=== PATIENT | male | born 1995 | race Caucasian/White ===

== ENCOUNTER 2021-03-05 22:33 | Emergency (ER) | payer OTHER ==
[~2021-03-05] VITALS: Ht 188 cm; Wt 117.9 kg
[2021-03-06 01:37] LABS: URINE BILIRUBIN NEGATIVE (Negative); URINE BLOOD NEGATIVE (Negative); URINE CLARITY CLEAR; URINE COLOR YELLOW; URINE GLUCOSE-RANDOM NEGATIVE (Negative); URINE KETONES NEGATIVE (Negative); URINE LEUKOCYTES-REFLEX NEGATIVE (Negative); URINE NITRITE-REFLEX NEGATIVE (Negative); URINE PROTEIN NEGATIVE (Negative); URINE SPECIFIC GRAVITY >= 1.030 (1.005-1.030); URINE UROBILINOGEN 0.2 E.U./dl (0.2-1.0)
[2021-03-06 01:42] LABS: AMP/METHAMP Negative (Negative); BARBITURATES Negative (Negative); BENZODIAZEPINES Negative (Negative); COCAINE Negative (Negative); METHADONE Negative (Negative); OPIATES Negative (Negative); PCP Negative (Negative); THC Negative (Negative)
[2021-03-06 01:44] LABS: HEMATOCRIT 45.1 % (42.0-52.0); HEMOGLOBIN 15.4 gm/dL (14.0-18.0); MCH 28.7 pg (26.0-34.0); MCHC 34.1 g/dL (28.0-37.0); MCV 83.9 fL (80.0-100.0); MPV 8.5 fl. (7.2-11.1); RBC 5.37 mil/uL (4.50-6.00); RDW-CV 13.7 % (10.5-14.5); WBC 9.1 thou/uL (4.0-11.0)
[2021-03-06 01:55] LABS: CALCIUM 9.4 mg/dL (8.5-10.1); CREATININE 0.8 mg/dL (0.6-1.3); POTASSIUM 3.7 mmol/L (3.5-5.1)
[2021-03-06 01:59] LABS: ALBUMIN 3.8 g/dL (3.4-5.0); TOTAL BILIRUBIN 0.3 mg/dL (<0.1-1.0); TOTAL PROTEIN 7.4 g/dL (6.4-8.2)
[2021-03-06] MEDS ORDERED: AMOXICILLIN500 M1 PO (02:28)
[2021-03-06 02:40] VITALS: BP 128/72
--- NOTE | 2021-03-06 16:26 | EKG ---
[place] [address] ELECTROCARDIOGRAM REPORT Name: ADAL CEDEÑO Room: 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: : 1995 Requested By: Lissa Herndon Order Number: [id number] MD: Richard Medrano Measurements Intervals [place] Rate: 78 P: 72 ME: 184 QRS: 103 QRSD: 98 T: -6 QT: 348 QTc: 397 Interpretive Statements Sinus rhythm Inferior infarct, age indeterminate Lateral leads are also involved No previous ECG available for comparison Electronically Signed On 03-06-2021 16:26:20 CDT by Richard Medrano [email or web address] <ELECTRONICALLY SIGNED> By: Richard Medrano MD, [facility] 03/06/21 1626 49 49 Richard Medrano MD, [facility] /EPI
== END 2021-03-06 02:40 | disposition home or self-care (01) ==
LOC: M.ERS 22:33
PROVIDERS: Personal Emergency Response Attendant
DX: R20.2 Paresthesia of skin (principal); Z20.822 Contact with and (suspected) exposure to COVID-19; A69.1 Other Vincent's infections